=== PATIENT | male | born 1980 | race Caucasian/White ===

== ENCOUNTER 2021-08-27 14:25 | Emergency (ER) | payer OTHER ==
[~2021-08-27] VITALS: Ht 185.4 cm; Wt 79.4 kg
[2021-08-27] MEDS ORDERED: NAPROSYN500 MG PO (19:27)
[2021-08-27] MEDS ORDERED: FLEXERIL PO (19:27)
[2021-08-27] MEDS ORDERED: HYDROCODON-ACE1 EAC7 PO (19:38)
[2021-08-27 19:41] VITALS: BP 132/69
== END 2021-08-27 19:43 | disposition home or self-care (01) ==
LOC: M.ERS 14:25
DX: M51.26 Other intervertebral disc displacement, lumbar region (principal); M54.41 Lumbago with sciatica, right side; G89.29 Other chronic pain; F17.210 Nicotine dependence, cigarettes, uncomplicated; X50.0XXA Overexertion from strenuous movement or load, initial encounter; Y93.89 Activity, other specified; Y92.89 Other specified places as the place of occurrence of the external cause; Y99.8 Other external cause status